=== PATIENT | male | born 1980 | race Caucasian/White ===

== ENCOUNTER → 2020-08-13 | Outpatient (CLI) | payer OTHER ==
[~2020-08-13] MED LIST: AMOXICILLIN500 M2 PO; NEXIUM20 M1 PO; ULTRAM50 MG PO
== END | disposition home or self-care (01) ==
LOC: COVID19 08:24
PROVIDERS: ATTEND Internal Medicine
DX: Z20.828 Contact with and (suspected) exposure to other viral communicable diseases (principal)